=== PATIENT | male | born 1970 | race Caucasian/White ===

== ENCOUNTER 2023-12-07 18:13 | Emergency (ER) | payer OTHER ==
[~2023-12-07] VITALS: Ht 172.7 cm; Wt 113.0 kg
[2023-12-07 18:16] VITALS: O2SAT 98
[2023-12-07] MEDS ORDERED: P20 MT (18:43)
[2023-12-07] MEDS ORDERED: GLYC30DR4 LEFTEYE (18:43)
[2023-12-07] MEDS ORDERED: VALA100044 MT (18:43)
[2023-12-07 19:24] VITALS: BP 134/75; PULSE 74; RESP 16; TEMP 98.6
== END 2023-12-07 19:30 | disposition home or self-care (01) ==
LOC: ER 18:13
DX: G51.0 Bell's palsy (principal); E11.9 Type 2 diabetes mellitus without complications; I10 Essential (primary) hypertension
CPT/HCPCS: 99283

== ENCOUNTER 2023-12-26 16:34 | Emergency (ER) | payer MEDICAID ==
[~2023-12-26] VITALS: Ht 170.2 cm; Wt 109.0 kg
[~2023-12-26 16:34] MED LIST: GLYC30DR4 LEFTEYE; P20 MT; VALA100044 MT
[2023-12-26 16:40] VITALS: TEMP 98.7; O2SAT 100
[2023-12-26 17:25] LABS: BASOPHILS % 0.7 % (0.0-2.0); EOSINOPHILS % 1.8 % (0.0-5.0); LYMPHOCYTES % 21.8 % (20.0-50.0); MEAN CORPUSCULAR HGB CONC 34.9 g/dL (31.0-37.0); MEAN CORPUSCULAR VOLUME 91.6 fL (80.0-94.0); MEAN PLATELET VOLUME 10.6 fl (7.4-10.4); MONOCYTES % 7.7 % (2.0-8.0); PLATELET 164 x1000/uL (130-400); RED BLOOD CELL COUNT 4.69 mill/uL (4.7-6.1); RED CELL DISTRIBUTION WIDTH 12.6 % (11.6-14.6); WHITE BLOOD COUNT 7.4 x1000/uL (4.5-11.0)
[2023-12-26 17:38] LABS: CHLORIDE 102 mEq/L (98-107); POTASSIUM 3.8 mEq/L (3.5-5.1); SODIUM 136 mEq/L (136-145)
[2023-12-26 17:39] LABS: CARBON DIOXIDE 27 mEq/L (21-32)
[2023-12-26 17:44] LABS: GLUCOSE 204 mg/dL (70-105)
[2023-12-26 17:45] LABS: UREA NITROGEN BLOOD 11 mg/dL (9-23)
[2023-12-26 17:46] LABS: ALANINE AMINOTRANSFERASE 38 IU/L (10-49); ALBUMIN 4.2 g/dL (3.2-4.8); ASPARTATE AMINOTRANSFERASE 25 IU/L (<34)
[2023-12-26 17:47] LABS: BILIRUBIN DIRECT 0.3 mg/dL (<=3.0)
[2023-12-26] MEDS: TETRACAINE 0.5% OPHTH DROPS 4ML LEFTEYE ONE (22:45)
[2023-12-26] MEDS: FLUORESCEIN SODIUM 1MG/STRIP LEFTEYE ONE (22:45)
[2023-12-26] MEDS ORDERED: OCUFLX LEFTEYE (23:23)
[2023-12-27 00:16] VITALS: BP 133/81; PULSE 76; RESP 16
== END 2023-12-27 00:17 | disposition home or self-care (01) ==
LOC: ER 16:34
DX: S05.02XA Injury of conjunctiva and corneal abrasion without foreign body, left eye, initial encounter (principal); E11.9 Type 2 diabetes mellitus without complications; I10 Essential (primary) hypertension; X58.XXXA Exposure to other specified factors, initial encounter; Y93.89 Activity, other specified; Y92.89 Other specified places as the place of occurrence of the external cause; Y99.8 Other external cause status
CPT/HCPCS: 36415; 80048; 80076; 85025; 99283